=== PATIENT | male | born 1990 | race Caucasian/White ===

== ENCOUNTER 2017-05-07 07:53 | Emergency (ER) | payer SELFPAY ==
[~2017-05-07] VITALS: Ht 177.8 cm; Wt 71.1 kg
[2017-05-07 07:57] VITALS: TEMP 37.2; Ht 177.8 cm; Wt 71.1 kg
[2017-05-07] MEDS ORDERED: SODIUM CHLORIDE 0.9% 1000ML 1,000 ML IV STA (08:09)
[2017-05-07] MEDS ORDERED: AMPICILLIN/SULBACTAM SOD INJ 3,000 MG in SODIUM CHLORIDE 0.9% 100ML 100 ML IV ONE (08:15)
--- NOTE | 2017-05-07 08:15 | EMERGENCY ROOM VISIT NOTE ---
History First contact with patient: 07:59 Chief Complaint: PAIN (GENERALIZED) Stated Complaint: ABSCESS TOOTH-SWELLING OF FACE, NECK PAIN, DIZZY History of Present Illness The patient is a 26 year old male who presents to the Emergency Room with complaints of dental pain and facial swelling. The patient states that he has had dental pain for the last 2 days. Yesterday he developed shortness of breath , dizziness, upper back, neck pain. He denies any fevers. 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 He states that this feels similar. He rates his discomfort a 6/10. The patient states he does not have a family doctor or dentist and does not have health insurance. He denies any fevers. He denies any pain in his chest. He denies any nausea or vomiting. Review of Systems A 10 system review of systems was completed with positives and pertinent negatives listed in the HPI. Past Medical/Surgical History Medical Problems: (1) Myocardial infarction (2) Myocarditis Social History Smoking Status: Current Every Day Smoker Occupation Status: employed Current/Historical Medications Scheduled Amoxicillin & Pot Clavulanate (Augmentin 875-125 mg), 1 TAB PO BID Scheduled PRN Ibuprofen Tab (Advil), 400 MG PO UD PRN for Pain Allergies Coded Allergies: Macrolides (Verified Allergy, Intermediate, RASH/HIVES, 05/07/17) Clindamycin (Verified Allergy, Mild, 05/07/17) Physical Exam Vital Signs Date Time Temp Pulse Resp B/P (MAP) Pulse Ox O2 Delivery O2 Flow Rate FiO2 05/07/17 11:15 81 20 137/91 97 05/07/17 10:15 84 20 144/95 99 Room Air 05/07/17 07:57 37.2 105 18 147/86 95 Room Air Physical Exam VITALS: Vitals are noted on the nurse's note and reviewed by myself. Vital signs stable. Patient afebrile. His heart rate is 105 bpm. GENERAL: This is a 26-year-old male, in no acute distress, nondiaphoretic, well- developed well-nourished. SKIN: The skin was without rashes, erythema, or bruising. There is no tenting of the skin. Capillary reflex less than 2 seconds. HEAD: Normocephalic atraumatic. EARS: External auditory canals clear, tympanic membranes pearly francisco without erythema or effusion bilaterally. EYES: Pupils equal round and reactive to light and accommodation. Conjunctivae without injection, sclerae without icterus. Extraocular movements intact. NOSE: Patent, turbinates without inflammation or discharge. Right maxillary sinus tenderness and facial swelling on the right. MOUTH: Mucous membranes moist. Tonsils are not enlarged. Pharynx without erythema or exudate. Uvula midline. Airway patent. Tongue does not deviate. The patient has fair dentition. A right upper molar has a crown. There is moderate right sided gum swelling. There is no drainage. There is no swelling beneath the tongue. NECK: Supple without nuchal rigidity. No lymphadenopathy. No thyromegaly. Cervical spine is nontender. No JVD. HEART: fast rate and regular rhythm without murmurs gallops or rubs. LUNGS: Clear to auscultation bilaterally without wheezes, rales or rhonchi. No retractions or accessory muscle use. MUSCULOSKELETAL: No muscle atrophy, erythema, or edema noted. Full range of motion in all extremities. Normal gait. Strength 5/5 throughout. NEURO: Patient was alert and oriented to person place and time. No focal neurological deficits. Medical Decision & Procedures ER Provider Diagnostic Interpretation: CHEST ONE VIEW PORTABLE CLINICAL HISTORY: dyspnea, dental infection, h/o myocarditis COMPARISON STUDY: No previous studies for comparison. FINDINGS: The cardiac and mediastinal contours are normal. There is no evidence of focal pulmonary consolidation. There is no evidence of failure. No pleural effusions are visualized.[ IMPRESSION: No active disease in the chest. Laboratory Results 05/07/17 08:30 Red Blood Count 4.63, Mean Corpuscular Volume 92.4, Mean Corpuscular Hemoglobin 32.8, Mean Corpuscular Hemoglobin Concent 35.5, Mean Platelet Volume 9.8, Neutrophils (%) (Auto) 81.8, Lymphocytes (%) (Auto) 8.6, Monocytes (%) (Auto) 8.8, Eosinophils (%) (Auto) 0.4, Basophils (%) (Auto) 0.2, Neutrophils # (Auto) 7.37, Lymphocytes # (Auto) 0.78, Monocytes # (Auto) 0.79, Eosinophils # (Auto) 0.04, Basophils # (Auto) 0.02 05/07/17 08:30 7/8/17 09:29 Test 05/07/17 08:30 05/07/17 08:38 05/07/17 09:29 White Blood Count 9.02 K/uL (4.8-10.8) Red Blood Count 4.63 M/uL (4.7-6.1) Hemoglobin 15.2 g/dL (14.0-18.0) Hematocrit 42.8 % (42-52) Mean Corpuscular Volume 92.4 fL (80-100) Mean Corpuscular Hemoglobin 32.8 pg (25-34) Mean Corpuscular Hemoglobin Concent 35.5 g/dl (32-36) Platelet Count 184 K/uL (130-400) Mean Platelet Volume 9.8 fL (7.4-10.4) Neutrophils (%) (Auto) 81.8 % Lymphocytes (%) (Auto) 8.6 % Monocytes (%) (Auto) 8.8 % Eosinophils (%) (Auto) 0.4 % Basophils (%) (Auto) 0.2 % Neutrophils # (Auto) 7.37 K/uL (1.4-6.5) Lymphocytes # (Auto) 0.78 K/uL (1.2-3.4) Monocytes # (Auto) 0.79 K/uL (0.11-0.59) Eosinophils # (Auto) 0.04 K/uL (0-0.5) Basophils # (Auto) 0.02 K/uL (0-0.2) RDW Standard Deviation 40.2 fL (36.4-46.3) RDW Coefficient of Variation 11.8 % (11.5-14.5) Immature Granulocyte % (Auto) 0.2 % Immature Granulocyte # (Auto) 0.02 K/uL (0.00-0.02) Anion Gap 7.0 mmol/L (3-11) Est Creatinine Clear Calc Drug Dose 121.5 ml/min Estimated GFR () 132.5 Estimated GFR (Non- 114.3 BUN/Creatinine Ratio 4.3 (10-20) Calcium Level 9.0 mg/dl (8.5-10.1) Total Bilirubin 0.4 mg/dl (0.2-1) Alanine Aminotransferase (ALT/SGPT) 26 U/L (12-78) Alkaline Phosphatase 73 U/L (45-117) Troponin I < 0.015 ng/ml (0-0.045) Total Protein 6.8 gm/dl (6.4-8.2) Albumin 3.6 gm/dl (3.4-5.0) Globulin 3.2 gm/dl (2.5-4.0) Albumin/Globulin Ratio 1.1 (0.9-2) Bedside Lactic Acid Venous 1.61 mmol/L (0.90-1.70) Aspartate Amino Transf (AST/SGOT) 12 U/L (15-37) Medications Administered Medications (Trade) Dose Ordered Sig/Vanessa Route Start Time Stop Time Status Last Admin Dose Admin Sodium Chloride 1,000 ml @ 999 mls/hr Q1H1M STAT IV 05/07/17 08:09 05/07/17 09:09 DC 05/07/17 08:45 999 MLS/HR Ampicillin Sodium/ Sulbactam Sodium 3000 mg/Sodium Chloride 108 ml @ 200 mls/hr ONE ONCE IV 05/07/17 08:15 05/07/17 08:47 DC 05/07/17 08:45 200 MLS/HR ECG Indication: chest pain Rate (beats per minute): 88 Rhythm: normal sinus Findings: no acute ischemic change Change: Diffuse ST elevation is resolved. ED Course The patient was seen and examined. Previous visits were reviewed. The patient does not have a fever or leukocytosis. He does not have any significant electrolyte abnormality. Troponin was not elevated. Lactic acid was not elevated. EKG does not reveal any acute arrhythmia, ischemia or ST elevation. The patient was hydrated with normal saline He was given IV Unasyn He declined pain medication The patient presents to the emergency department with dental infection. He is afebrile. He does not have a leukocytosis and is nontoxic in appearance. The patient does have a history of myocarditis and RI after was sent tooth extraction. He denies any chest pain but states he has had some shortness of breath and diffuse arthralgias and myalgias. At this time, troponin is normal and EKG does not reveal any ST elevation as it did on his previous visit. I suspected dental infection. There is no evidence for acute myocarditis at this time but the patient was advised to monitor very closely. He was advised to return immediately with any chest pain. He was advised to return if he could not tolerate the medications. He'll be placed on Augmentin. Case management spoke with the patient and gave him information on [employer] [facility] medicine and payment options. After the patient had been discharged, the pharmacy called and stated the Augmentin would cost $54 and the patient could not afford that. He will be placed on Pen-Vee K 500 mg one 4 times a day 10 days. The pharmacist stated this would cost approximately $40 and the patient was fine without cost. The patient should see a dentist for definitive management The case was discussed with Dr. Silverio who agrees with the assessment and treatment plan. Medical Decision DIFFERENTIAL DIAGNOSIS: Aortic dissection, myocarditis, pericarditis, cervical disc disease, costochondritis, herpes zoster, rib fracture, pleuritis, pneumonia , pulmonary embolus, tension pneumothorax, anxiety disorder, somatoform disorder , choledocholithiasis, status, esophagitis, esophageal spasm, esophageal reflux , esophageal rupture, pancreatitis, peptic ulcer disease, cardiac ischemia, ST elevation RI, acute coronary syndrome, arrhythmia, coronary artery vasospasm. vavular heart disease, coronary artery disease, among others. Impression Primary Impression: Dental abscess Departure Information Dispostion Home / Self-Care Condition GOOD Prescriptions Amoxicillin & Pot Clavulanate (Augmentin 875-125 mg) 1 Tab Tab 1 TAB PO BID for 10 Days, #20 TAB Prov: Trang Armendariz PA-C 05/07/17 Referrals No Doctor, Assigned (PCP) Forms HOME CARE DOCUMENTATION FORM, IMPORTANT VISIT INFORMATION, WORK / SCHOOL INSTRUCTIONS Patient Instructions Dental Abscess, [facility] [place] [facility] Additional Instructions Augmentin every 12 hours for 10 days Return immediately with chest pain, worsening headache/neck pain or generalized worsening symptoms Otherwise, follow up with a dentist and family doctor for further evaluation and management Work Instructions Return To Work: 3 days
--- NOTE | 2017-05-07 08:26 | DIAGNOSTIC IMAGING REPORT ---
CHEST ONE VIEW PORTABLE CLINICAL HISTORY: dyspnea, dental infection, h/o myocarditis COMPARISON STUDY: No previous studies for comparison. FINDINGS: The cardiac and mediastinal contours are normal. There is no evidence of focal pulmonary consolidation. There is no evidence of failure. No pleural effusions are visualized.[ IMPRESSION: No active disease in the chest. Electronically signed by: Kaleb Shepard M.D. 05/07/2017 8:24 AM Dictated Date/Time: 05/07/2017 8:24 AM
[2017-05-07] MEDS ORDERED: IBUP-103 PO (08:31)
[2017-05-07 08:51] LABS: BASO % 0.2 %; BASO ABS # 0.02 K/uL (0-0.2); COMPLETE YES; EOS % 0.4 %; HEMATOCRIT 42.8 % (42-52); IG% 0.2 %; LYMPH % 8.6 %; LYMPH ABS # 0.78 K/uL (1.2-3.4); MEAN CELL VOLUME 92.4 fL (80-100); MEAN CORPUSCULAR HEMOGLOBIN 32.8 pg (25-34); MEAN CORPUSCULAR HGB CONC 35.5 g/dl (32-36); MEAN PLATELET VOLUME 9.8 fL (7.4-10.4); MONO % 8.8 %; NEUT % 81.8 %; PLATELET COUNT 184 K/uL (130-400); RED BLOOD COUNT 4.63 M/uL (4.7-6.1); WHITE BLOOD COUNT 9.02 K/uL (4.8-10.8)
[2017-05-07 09:16] LABS: ALB/GLOB RATIO 1.1 (0.9-2); ALKALINE PHOSPHATASE 73 U/L (45-117); ALT/SGPT 26 U/L (12-78); BLOOD UREA NITROGEN 4 mg/dl (7-18); BUN/CREATININE RATIO 4.3 (10-20); CARBON DIOXIDE 24 mmol/L (21-32); CHLORIDE 109 mmol/L (98-107); CREATININE 0.91 mg/dl (0.60-1.40); GLUCOSE 102 mg/dl (70-99); SODIUM 140 mmol/L (136-145)
[2017-05-07 09:51] LABS: POTASSIUM 3.9 mmol/L (3.5-5.1)
[2017-05-07] MEDS ORDERED: AMOX875T PO (10:00)
[2017-05-07 11:15] VITALS: BP 137/91; PULSE 81; O2SAT 97
== END 2017-05-07 11:17 | disposition home or self-care (01) ==
LOC: C.EDB 07:55
DX: K04.7 Periapical abscess without sinus (principal); I51.4 Myocarditis, unspecified; I25.2 Old myocardial infarction; F17.210 Nicotine dependence, cigarettes, uncomplicated